=== PATIENT | male | born 1970 | race African-American/Black ===

== ENCOUNTER → 2025-02-02 | Emergency (ER) | payer OTHER ==
[~2025-02-02] VITALS: Ht 177.8 cm; Wt 81.6 kg
[~2025-02-02] MED LIST: BETAMETHASONE D15 G2 TOP; BETAMETHASONE V15 GM; CEFTRIAXONE SODIUM 1,000 MG VIAL IM ONE; CEFTRIAXONE SODIUM 1,000 MG VIAL ONE; CEPHALEXIN500 MG PO; HYDROCORTISO453.6 G1
== END | disposition home or self-care (01) ==
LOC: ER 17:26
DX: L73.2 Hidradenitis suppurativa (principal); Z91.013 Allergy to seafood

== ENCOUNTER 2025-02-12 17:16 | Inpatient (IN) | payer OTHER ==
[~2025-02-12] VITALS: Ht 177.8 cm; Wt 71.7 kg
[~2025-02-12 17:16] MED LIST changes: -CEFTRIAXONE SODIUM 1,000 MG VIAL IM ONE; -CEFTRIAXONE SODIUM 1,000 MG VIAL ONE
--- NOTE | 2025-02-12 17:47 | NUR ---
PACIENTE ALERTA Y ORIENTADO X 3. REFIERE 3 RODRIGUEZ CON FIEBRE, ORINANDO POCO, PICOR EN TODO EL CUERPO Y LACERACIONES EN AREA DE LOS GLUTEOS CON [place]. REFIERE FUE DIAGNOSTICADO CON ERYTHRODERMA.
[2025-02-12] MEDS ORDERED: DUPIXENT P200 MG/1.1 SQ (17:53)
--- NOTE | 2025-02-12 19:00 | NUR ---
SE REALIZA LAB Y SE ADMINISTRA TX MALVIN ORDEN MEDICA BAJO MEDIDAS ASEPTICAS. SE ORIENTA PTE QUIEN REFIERE ENTENDER Y ACEPTAR. SE UBICA A PTE EN CAM EN AREA DE OBSERVACION MALVIN ORDENA DR. ARREDONDO.
[2025-02-12] MEDS ORDERED: 0.9 % SODIUM CHLORIDE 1,000 ML IV ONE (19:15)
[2025-02-12] MEDS ORDERED: CEFTRIAXONE SODIUM 2,000 MG VIAL IV ONE (19:15)
[2025-02-12 20:02] LABS: BASO % 1.6 % (0.1-1.2); EOS # 0.56 (0.04-0.54); EOS % 7.6 % (0.7-7.0); LYMPH # 1.22 (1.18-3.74); LYMPH % 16.6 % (19.3-53.1); MEAN PLATELET VOLUME 10.90 fl (9.4-12.4); MONO # 0.59 (0.24-0.82); MONO % 8.0 % (4.7-12.5); NEUT # 4.76 (1.56-6.13); NEUT % 64.8 % (34.0-71.1); RED CELL DISTRIBUTION WIDTH 14.8 % (11.6-14.4)
[2025-02-12 20:30] LABS: ALT/SGPT 29.0 U/L (12-78); AST/SGOT 36.0 U/L (15-37); BILIRUBIN TOTAL 0.45 mg/dL (0.3-1.2); BUN CREA RATIO 11.0 (7.0-25.0); CREATININE SERUM 1.04 mg/dL (0.70-1.30); GFR 74.7; GLOBULINA 4.0 G/DL (2.4-3.5); GLUCOSE FASTING 115.0 mg/dL (65-100); OSMOLALITY SERUM 291.0 MOSM/KG (275-295)
[2025-02-12 20:39] LABS: ERYTHROCYTE SEDIMENTATION RATE 55 mm/hr (0-20)
[2025-02-12 23:42] LABS: URINE APPEARANCE Cloudy; URINE BILIRRUBIN Small (NEGATIVE); URINE BLOOD Negative; URINE COLOR Dark Yellow; URINE GLUCOSE Negative (NEGATIVE); URINE KETONE Trace (NEGATIVE); URINE LEUKOCYTE Trace; URINE NITRATE Negative; URINE PROTEIN Trace (NEGATIVE); URINE UROBILINOGEN 1.0 E.U./dl
[2025-02-12 23:45] LABS: URINE BACTERIA 11.9 uL (0.0-1933); URINE CAST 1.61 uL (0.0-1.40); URINE EPITHELIAL CELLS 8.6 uL (0.0-38.8); URINE RBC 58.8 uL (0.0-20.8); URINE WBC 6.7 uL (0.0-23.2)
[2025-02-13 00:12] LABS: URINE CRYSTALS MANY /HPF
[2025-02-13] MEDS ORDERED: KETOROLAC TROMETHAMINE 30 MG VIAL IV ONE (18:15)
[2025-02-13] MEDS ORDERED: VANCOMYCIN HCL 1,000 MG VIAL IV SCH (18:36)
[2025-02-13] MEDS ORDERED: FAMOTIDINE/PF 20 MG in 0.9 % SODIUM CHLORIDE 8 ML IV PUSH SCH (18:36)
[2025-02-13] MEDS ORDERED: ACETAMINOPHEN 500 MG GEL..CAP PO PRN (18:45)
[2025-02-13] MEDS ORDERED: METHYLPREDNISOLONE SOD SUCC 125 MG VIAL IV ONE (18:45)
[2025-02-13] MEDS ORDERED: DIPHENHYDRAMINE HCL 50 MG/ML VIAL 1ML IV ONE (18:45)
[2025-02-13] MEDS ORDERED: 0.9 % SODIUM CHLORIDE 1,000 ML IV SCH (18:45)
[2025-02-13 21:37] LABS: INR 0.98
[2025-02-14 03:43] VITALS: BP 163/83
[2025-02-14] MEDS ORDERED: LACTOBACILLUS ACIDOPHILUS 1 CAP CAP PO SCH (09:00)
[2025-02-14] MEDS ORDERED: ENOXAPARIN SODIUM 40 MG/0.4 ML SYRINGE SUBCUTANEO SCH (09:00)
[2025-02-14] MEDS ORDERED: PIPERACILLIN/TAZOBACTAM SODIUM 4.5 GM in 0.9 % SODIUM CHLORIDE 100 ML IV SCH (18:00)
[2025-02-14 20:07] VITALS: BP 160/85; O2SAT 100
[2025-02-15 02:13] VITALS: BP 161/81; O2SAT 100
[2025-02-15 06:19] LABS: EOS # 0.94 (0.04-0.54); EOS % 13.6 % (0.7-7.0); LYMPH # 1.16 (1.18-3.74); LYMPH % 16.7 % (19.3-53.1); MEAN PLATELET VOLUME 11.30 fl (9.4-12.4); MONO # 0.45 (0.24-0.82); MONO % 6.5 % (4.7-12.5); NEUT # 4.13 (1.56-6.13); NEUT % 59.6 % (34.0-71.1); RED CELL DISTRIBUTION WIDTH 14.7 % (11.6-14.4)
[2025-02-15 06:37] LABS: BASO % 2.3 % (0.1-1.2)
[2025-02-15 07:07] LABS: ALT/SGPT 55.0 U/L (12-78); AST/SGOT 78.0 U/L (15-37); BILIRUBIN TOTAL 0.22 mg/dL (0.3-1.2); BUN CREA RATIO 22.0 (7.0-25.0); CREATININE SERUM 0.76 mg/dL (0.70-1.30); GFR 107.29; GLOBULINA 3.3 G/DL (2.4-3.5); GLUCOSE FASTING 112.0 mg/dL (65-100); OSMOLALITY SERUM 298.0 MOSM/KG (275-295)
[2025-02-15 09:08] VITALS: BP 140/84; O2SAT 100
[2025-02-15 17:20] VITALS: BP 160/85; O2SAT 100
[2025-02-16] MEDS ORDERED: CIPROFLOXACIN IN 5 % DEXTROSE 400 MG/200 ML PIGGYBAG IV SCH (01:00)
[2025-02-16 02:30] VITALS: BP 157/90; O2SAT 100
[2025-02-16 07:00] VITALS: BP 172/93; O2SAT 98
[2025-02-16 17:07] VITALS: BP 137/93
[2025-02-17 02:24] VITALS: BP 158/94; O2SAT 98
[2025-02-17] MEDS ORDERED: ORPHENADRINE CITRATE 30 MG/ML AMPUL IM STA (16:13)
[2025-02-17 17:09] VITALS: BP 130/77; O2SAT 100
== END 2025-02-17 18:45 | disposition home or self-care (01) | DRG 571 ==
LOC: ER 17:18 → MEDJ 02-13 18:53 → MEDI 02-14 15:08
PROVIDERS: General Practice; Internal Medicine Infectious Disease; Preventive Medicine Public Health & General Preventive Medicine; ADMIT Internal Medicine; ATTEND Internal Medicine
PROC: 0JB90ZZ Excision of Buttock Subcutaneous Tissue and Fascia, Open Approach (ICD-10-PCS; principal; 2025-02-13)
PROC: 8E0ZXY6 Isolation (ICD-10-PCS; 2025-02-14)
DX: L02.31 Cutaneous abscess of buttock (principal); L02.811 Cutaneous abscess of head [any part, except face]; L26 Exfoliative dermatitis; L73.2 Hidradenitis suppurativa; B96.5 Pseudomonas (aeruginosa) (mallei) (pseudomallei) as the cause of diseases classified elsewhere; B95.62 Methicillin resistant Staphylococcus aureus infection as the cause of diseases classified elsewhere; K58.8 Other irritable bowel syndrome